=== PATIENT | male | born 2000 | race Caucasian/White ===

== ENCOUNTER 2019-06-20 17:42 | Inpatient (IN) | payer MEDICAID, OTHER ==
[~2019-06-20] VITALS: Ht 180.3 cm; Wt 72.1 kg
[2019-06-20] MEDS ORDERED: OLAN10TA3 PO (18:15)
[2019-06-20] MEDS ORDERED: SERT100T12 PO (18:15)
[2019-06-20] MEDS ORDERED: LIDOCAINE 1%/EPI 1:200,000/PF 10 ML VIAL INJ ONE (18:30)
[2019-06-20] MEDS ORDERED: LIDOCAINE 2%/EPI 1:200,000/PF 20 ML VIAL INJ ONE (18:30)
[2019-06-20 18:49] LABS: BASOPHILS % (AUTO) 0.5 % (0.0-2.0); EOSINOPHILS % (AUTO) 4.3 % (1.0-6.0); HEMOGLOBIN 15.8 g/dL (13.5-17.5); LYMPHOCYTES # (AUTO) 1.4 K/uL (1.0-4.8); LYMPHOCYTES % (AUTO) 19.2 % (22.0-44.0); MEAN CORPUSCULAR HEMOGLOBIN 29.8 pg (26.0-34.0); MEAN CORPUSCULAR HGB CONC 33.7 G/dL (31.0-37.0); MEAN CORPUSCULAR VOLUME 89 fL (80-100); MONOCYTES # (AUTO) 0.5 K/uL (0.1-1.0); MONOCYTES % (AUTO) 7.5 % (2.0-9.0); NEUTROPHILS # (AUTO) 4.9 K/uL (1.8-7.7); NEUTROPHILS % (AUTO) 68.5 % (40.0-70.0); PLATELET COUNT (AUTO) 219 K/uL (150-450); RED BLOOD CELL COUNT(AUTO) 5.31 MIL/uL (4.50-5.90); RED CELL DISTRIBUTION WIDTH 13.2 % (11.5-14.5)
[2019-06-20] MEDS ORDERED: BACITRACIN 0.9 GM PACKET OINTMENT TP ONE (19:00)
[2019-06-20 19:05] LABS: ANION GAP 11 mmol/L (8-16); CALCIUM, TOTAL 8.7 mg/dL (8.8-10.5); CARBON DIOXIDE 25 mmol/L (22-29); CHLORIDE 105 mmol/L (98-107); CREATININE 0.95 mg/dL (0.60-1.30); GLOMERULAR FILTR. RATE CALC > 60 mL/min (>60); GLUCOSE,RANDOM 121 mg/dL (70-110); POTASSIUM 3.8 mmol/L (3.5-5.1); SODIUM SERUM 141 mmol/L (136-145); UREA NITROGEN, BLOOD 12 mg/dL (7-18)
[2019-06-20 19:11] LABS: ALANINE AMINOTRANSFERASE 23 U/L (12-78); ALBUMIN 3.9 g/dL (3.4-5.0); ALKALINE PHOSPHATASE 97 U/L (46-116); ASPARTATE AMINOTRANSFERASE 20 U/L (15-37); BILIRUBIN,TOTAL 0.2 mg/dL (0.1-1.0); TOTAL PROTEIN, SERUM 6.8 g/dL (6.4-8.2)
[2019-06-20] MEDS ORDERED: ZOLPIDEM TARTRATE 10 MG TABLET PO PRN (19:45)
[2019-06-20] MEDS ORDERED: MAG HYDROX/AL HYDROX/SIMETH ES 30 ML SUSPENSION UDCUP PO PRN (19:45)
[2019-06-20] MEDS ORDERED: LOPERAMIDE HCL 2 MG CAPSULE PO PRN (19:45)
[2019-06-20] MEDS ORDERED: GuaiFENesin/D-METHORPHAN [SUGAR-FREE] 200-20MG/10 ML SYRUP UDCUP PO PRN (19:45)
[2019-06-20] MEDS ORDERED: MAGNESIUM HYDROXIDE SUSPENSION 30 ML UDCUP PO PRN (19:45)
[2019-06-20] MEDS ORDERED: ACETAMINOPHEN 325 MG TABLET PO PRN (19:45)
[2019-06-20] MEDS ORDERED: OLANZapine 5 MG RAPDIS TABLET PO PRN (19:45)
[2019-06-20] MEDS ORDERED: HydrOXYzine PAMOATE 50 MG CAPSULE PO PRN (19:45)
[2019-06-20] MEDS ORDERED: LORazepam 2 MG TABLET PO PRN (19:45)
[2019-06-20] MEDS ORDERED: CYANOCOBALAMIN 1,000 MCG/ML VIAL IM ONE (19:45)
[2019-06-20] MEDS: OLANZapine 5 MG RAPDIS TABLET PO SCH (21:00)
[2019-06-20] MEDS: THIAMINE HCL 100 MG TABLET PO SCH (21:00)
[2019-06-20 22:18] VITALS: BP 150/88
[2019-06-21 07:21] LABS: HEMOGLOBIN A1C 5.4 % (3.8-5.6)
[2019-06-21 07:34] LABS: CHOL/HDL RATIO 4.4 (4.2-7.3); FREE T4 (FREE THYROXINE) 0.92 ng/dL (0.76-1.46); THYROID STIMULATING HORMONE 0.71 uIU/mL (0.36-3.74)
[2019-06-21 08:00] VITALS: BP 115/69
[2019-06-21] MEDS ORDERED: SERTRALINE HCL 100 MG TABLET PO SCH (09:00)
[2019-06-21] MEDS: THIAMINE HCL 100 MG TABLET PO SCH ×2 (09:32→16:42)
[2019-06-21] MEDS: NALTREXONE HCL 50 MG TABLET PO SCH (09:32)
[2019-06-21] MEDS: FOLIC ACID 1 MG TABLET PO SCH (09:32)
[2019-06-21] MEDS: MULTIVITAMINS WITH MINERALS, THERAPEUTIC TABLET PO SCH (09:32)
[2019-06-21 17:21] VITALS: BP 134/82
[2019-06-21 20:10] VITALS: BP 134/82
[2019-06-21] MEDS: OLANZapine 5 MG RAPDIS TABLET PO SCH (20:47)
[2019-06-22 08:43] VITALS: BP 128/81
[2019-06-22] MEDS: SERTRALINE HCL 100 MG TABLET PO SCH (10:51)
[2019-06-22] MEDS: THIAMINE HCL 100 MG TABLET PO SCH ×2 (10:52→17:50)
[2019-06-22] MEDS: MULTIVITAMINS WITH MINERALS, THERAPEUTIC TABLET PO SCH (10:52)
[2019-06-22] MEDS: FOLIC ACID 1 MG TABLET PO SCH (10:54)
[2019-06-22] MEDS: NALTREXONE HCL 50 MG TABLET PO SCH (10:56)
[2019-06-22] MEDS: BACITRACIN 28.4 GM OINTMENT TP SCH (10:59)
[2019-06-22 18:06] VITALS: BP 141/84
[2019-06-22] MEDS: OLANZapine 5 MG RAPDIS TABLET PO SCH (21:12)
[2019-06-23] MEDS: THIAMINE HCL 100 MG TABLET PO SCH ×2 (09:59→16:42)
[2019-06-23] MEDS: FOLIC ACID 1 MG TABLET PO SCH (09:59)
[2019-06-23] MEDS: NALTREXONE HCL 50 MG TABLET PO SCH (09:59)
[2019-06-23] MEDS: MULTIVITAMINS WITH MINERALS, THERAPEUTIC TABLET PO SCH (10:00)
[2019-06-23] MEDS: SERTRALINE HCL 100 MG TABLET PO SCH (10:00)
[2019-06-23] MEDS: BACITRACIN 28.4 GM OINTMENT TP SCH (10:09)
[2019-06-23 13:22] VITALS: BP 125/76
[2019-06-23 18:09] VITALS: BP 137/87
[2019-06-23] MEDS: OLANZapine 10 MG RAPDIS TABLET PO SCH (21:37)
[2019-06-24 09:05] VITALS: BP 121/75
[2019-06-24] MEDS: NALTREXONE HCL 50 MG TABLET PO SCH (09:12)
[2019-06-24] MEDS: MULTIVITAMINS WITH MINERALS, THERAPEUTIC TABLET PO SCH (09:13)
[2019-06-24] MEDS: FOLIC ACID 1 MG TABLET PO SCH (09:13)
[2019-06-24] MEDS: THIAMINE HCL 100 MG TABLET PO SCH ×2 (09:13→16:23)
[2019-06-24] MEDS: SERTRALINE HCL 100 MG TABLET PO SCH (09:13)
[2019-06-24] MEDS: BACITRACIN 28.4 GM OINTMENT TP SCH (09:14)
[2019-06-24] MEDS ORDERED: SERT100T12 PO (16:21)
[2019-06-24] MEDS ORDERED: OLAN10TA22 PO (16:21)
[2019-06-24] MEDS ORDERED: NALT50TA PO (16:21)
[2019-06-24 16:44] VITALS: BP 146/92
[2019-06-24] MEDS: OLANZapine 10 MG RAPDIS TABLET PO SCH (20:41)
[2019-06-25 08:30] VITALS: BP 139/90
[2019-06-25] MEDS: MULTIVITAMINS WITH MINERALS, THERAPEUTIC TABLET PO SCH (09:53)
[2019-06-25] MEDS: SERTRALINE HCL 100 MG TABLET PO SCH (09:53)
[2019-06-25] MEDS: FOLIC ACID 1 MG TABLET PO SCH (09:53)
[2019-06-25] MEDS: NALTREXONE HCL 50 MG TABLET PO SCH (09:53)
[2019-06-25] MEDS: THIAMINE HCL 100 MG TABLET PO SCH ×2 (09:53→16:15)
[2019-06-25] MEDS: BACITRACIN 28.4 GM OINTMENT TP SCH (09:54)
[2019-06-25] MEDS: OLANZapine 10 MG RAPDIS TABLET PO SCH (20:56)
[2019-06-25 21:51] VITALS: BP 135/80
[2019-06-26] MEDS: SERTRALINE HCL 100 MG TABLET PO SCH (09:14)
[2019-06-26] MEDS: NALTREXONE HCL 50 MG TABLET PO SCH (09:14)
[2019-06-26] MEDS: THIAMINE HCL 100 MG TABLET PO SCH ×2 (09:15→16:58)
[2019-06-26] MEDS: BACITRACIN 28.4 GM OINTMENT TP SCH (09:15)
[2019-06-26] MEDS: MULTIVITAMINS WITH MINERALS, THERAPEUTIC TABLET PO SCH (09:15)
[2019-06-26] MEDS: FOLIC ACID 1 MG TABLET PO SCH (09:15)
[2019-06-26 11:13] VITALS: BP 119/69
[2019-06-26 17:39] VITALS: BP 122/79
[2019-06-26] MEDS: OLANZapine 10 MG RAPDIS TABLET PO SCH (21:16)
[2019-06-27 08:00] VITALS: BP 137/71
[2019-06-27] MEDS: THIAMINE HCL 100 MG TABLET PO SCH (09:16)
[2019-06-27] MEDS: FOLIC ACID 1 MG TABLET PO SCH (09:16)
[2019-06-27] MEDS: NALTREXONE HCL 50 MG TABLET PO SCH (09:16)
[2019-06-27] MEDS: MULTIVITAMINS WITH MINERALS, THERAPEUTIC TABLET PO SCH (09:16)
[2019-06-27] MEDS: BACITRACIN 28.4 GM OINTMENT TP SCH (09:16)
[2019-06-27] MEDS: SERTRALINE HCL 100 MG TABLET PO SCH (09:16)
== END 2019-06-27 15:05 | disposition home or self-care (01) | DRG 885 ==
LOC: EMS 17:42 → 3EI 20:39
PROVIDERS: ADMIT Psychiatry & Neurology Psychiatry; ATTEND Psychiatry & Neurology Psychiatry
PROC: 0HQGXZZ Repair Left Hand Skin, External Approach (ICD-10-PCS; principal; 2019-06-20)
DX: F33.2 Major depressive disorder, recurrent severe without psychotic features (principal); S81.812A Laceration without foreign body, left lower leg, initial encounter; S61.511A Laceration without foreign body of right wrist, initial encounter; S01.411A Laceration without foreign body of right cheek and temporomandibular area, initial encounter; F17.210 Nicotine dependence, cigarettes, uncomplicated; F41.9 Anxiety disorder, unspecified; X78.1XXA Intentional self-harm by knife, initial encounter; Z91.5 Personal history of self-harm; Y93.89 Activity, other specified; Y92.89 Other specified places as the place of occurrence of the external cause; Y99.8 Other external cause status; Z91.19 Patient's noncompliance with other medical treatment and regimen; Z79.899 Other long term (current) drug therapy
CPT/HCPCS: 83036; 84439; 84443; 86592; 93005; G0480; J3420; J3490